=== PATIENT | female | born 1985 | race Caucasian/White ===

== ENCOUNTER 2017-10-06 17:40 | Inpatient (IN) | payer MEDICAID, OTHER ==
[~2017-10-06] VITALS: Ht 162.6 cm; Wt 75.0 kg
[~2017-10-06 17:40] MED LIST: ADDE30TA PO; CYMB30CA PO; CYMB60CA PO; PRAZ2CAP PO
[2017-10-06 17:52] VITALS: BP 152/97; PULSE 93; RESP 18; TEMP 98.9; O2SAT 99
--- NOTE | 2017-10-06 20:21 | PD ---
Physical Exam Date Seen by Provider: Oct 06, 2017 Time Seen by Provider: 20:16 Narrative 32 year old female presents to the emergency department for evaluation of infection in her hand. She went to Urgent Care who recommend she go to the ED. She went to [facility] who told her she needed a hand surgeon. She was tole that we had one construction project coordinator so she came here. Current pain is 8/10 without radiation. Data Data Last Documented VS Vital Signs Date Time Temp Pulse Resp B/P (MAP) Pulse Ox O2 Delivery O2 Flow Rate FiO2 10/06/17 17:52 98.9 93 18 152/97 (115) 99 Orders Orders Complete Blood Count With Diff (10/06/17 17:54) Prothrombin Time / Inr (Pt) (10/06/17 17:54) Act Partial Throm Time (Ptt) (10/06/17 17:54) Basic Metabolic Panel (Bmp) (10/06/17 17:54) Labs Laboratory Tests Test 10/06/17 19:30 White Blood Count 9.0 TH/MM3 Red Blood Count 5.17 MIL/MM3 Hemoglobin 13.9 GM/DL Hematocrit 41.7 % Mean Corpuscular Volume 80.8 FL Mean Corpuscular Hemoglobin 27.0 PG Mean Corpuscular Hemoglobin Concent 33.4 % Red Cell Distribution Width 15.2 % Platelet Count 248 TH/MM3 Mean Platelet Volume 9.1 FL Neutrophils (%) (Auto) 48.8 % Lymphocytes (%) (Auto) 37.5 % Monocytes (%) (Auto) 11.1 % Eosinophils (%) (Auto) 1.9 % Basophils (%) (Auto) 0.7 % Neutrophils # (Auto) 4.4 TH/MM3 Lymphocytes # (Auto) 3.4 TH/MM3 Monocytes # (Auto) 1.0 TH/MM3 Eosinophils # (Auto) 0.2 TH/MM3 Basophils # (Auto) 0.1 TH/MM3 CBC Comment DIFF FINAL Differential Comment Blood Urea Nitrogen 9 MG/DL Creatinine 0.72 MG/DL Random Glucose 88 MG/DL Calcium Level 8.8 MG/DL Sodium Level 140 MEQ/L Potassium Level 3.9 MEQ/L Chloride Level 105 MEQ/L Carbon Dioxide Level 27.9 MEQ/L Anion Gap 7 MEQ/L Estimat Glomerular Filtration Rate 94 ML/MIN [facility] Supervised Visit with ROSALIO: No Narrative Course 32 year old female presents to the emergency department for infection in her hand and was told she needed to see a hand surgeon. Work up was initiated in triage. Patient left AMA before she could be placed in a medical bed. Diagnosis Primary Impression: Left against medical advice Disposition: 07 AGAINST MEDICAL ADVICE Samra Mcmahon Oct 06, 2017 20:21
[2017-10-06 20:31] LABS: AUTOMATED NEUTROPHIL # 4.4 TH/MM3 (1.8-7.7); BASOPHIL # 0.1 TH/MM3 (0-0.2); BASOPHIL % 0.7 % (0.0-2.0); EOSINOPHIL # 0.2 TH/MM3 (0-0.4); EOSINOPHIL % 1.9 % (0.0-4.0); HEMATOCRIT 41.7 % (35.0-46.0); HEMOGLOBIN 13.9 GM/DL (11.6-15.3); LYMPH % 37.5 % (9.0-44.0); LYMPHOCYTE # 3.4 TH/MM3 (1.0-4.8); MEAN CELL VOLUME 80.8 FL (80.0-100.0); MEAN CORPUSCULAR HGB CONC 33.4 % (32.0-36.0); MEAN PLATELET VOLUME 9.1 FL (7.0-11.0); MONO % 11.1 % (0.0-8.0); NEUT % 48.8 % (16.0-70.0); PLATELET COUNT 248 TH/MM3 (150-450); RED BLOOD COUNT 5.17 MIL/MM3 (4.00-5.30); RED CELL DISTRIBUTION WIDTH 15.2 % (11.6-17.2)
[2017-10-06 20:44] LABS: BICARBONATE 27.9 MEQ/L (21.0-32.0); CALCIUM 8.8 MG/DL (8.5-10.1); CREATININE 0.72 MG/DL (0.50-1.00)
[2017-10-06 20:53] LABS: INTERNATIONAL NORMALIZED RATIO 0.9 RATIO; PROTHROMBIN TIME - PATIENT 9.1 SEC (9.8-11.6)
[2017-10-06] MEDS ORDERED: CLINDAMYCIN 600 MG/NS PREMIX 50 ML IV ONE (22:45)
[2017-10-06] MEDS ORDERED: CLINDAMYCIN 600 MG/NS 100 ML IV ONE ×2 (23:00)
--- NOTE | 2017-10-06 23:52 | PD ---
HPI Chief Complaint: Skin Problem Time Seen by Provider: 22:18 Travel History International Travel<30 days: No Contact w/Intl Traveler<30days: No Traveled to known affect area: No History of Present Illness HPI 32-year-old female came to the emergency room with history of right hand swelling for past 2 days. She thinks that it is from a cat scratch. Patient is right-handed. She started noticing the swelling mostly appearing on the dorsum of her hand initially. She applied some lidocaine on it to minimize the pain. After that she started soaking it in warm water. This morning when she woke up it was significantly swollen and she went to an urgent care. At urgent care she was given antibiotic and asked to go to an emergency room to be seen and probably get IV antibiotics. Patient went to [facility] where a CAT scan of the hand was done. She was told that there was abscess around her tendon. She was asked to be admitted to see a hand surgeon. Patient was told that there was no hand surgeon in the hospital and she may have to stay for about 3 days to be seen by one who comes from [place]. Patient did not want to stay that long since she has 2 children who she takes care of solely. Hence she came to this emergency room because she was told there is a hand surgeon in [place] 27/01 available. Vital signs are stable. 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 No history of fever or chills. [facility] Past Medical History Narrative Medical List of her past medical, surgical, social and family history reviewed from the nursing note. Musculoskeletal: Yes (CHRONIC LOW BACK PAIN) Immunizations Current: Yes Thyroid Disease: Yes (STATES LOW THYROID) ?: Not LMP: end of jul Past Surgical History Tonsillectomy: Yes Other Surgery: Yes (BREAST AUGMENTATION) Social History Alcohol Use: No Tobacco Use: Yes (1-2 CIGS DAILY) Substance Use: No Allergies-Medications (Allergen,Severity, Reaction): Coded Allergies: penicillin G (Unverified Allergy, Unknown, Hives, 10/06/17) Comments List of her allergies reviewed from the nursing note. Reported Meds & Prescriptions Reported Meds & Active Scripts Active Cymbalta DR (Duloxetine HCl) 30 Mg Capdr 30 Mg PO DAILY Adderall (Amphetamine-Dextroamphetamine) 30 Mg Tab 30 Mg PO BID Avoid late evening doses. Space doses at least 4 to 6 hours if more than once/day dosing. Reported Gabapentin 300 Mg Cap 300 Mg PO TID Xanax (Alprazolam) 1 Mg Tab 1 Mg PO BID PRN Oxycodone ER (Oxycodone HCl) 30 Mg Tab 30 Mg PO Q6HR Methadone (Methadone HCl) 10 Mg Tab 10 Mg PO TID Narrative Medication List of her home medications reviewed from the nursing note. Review of Systems Except as stated in HPI: all other systems reviewed are Neg Musculoskeletal: Positive: Pain Physical Exam Narrative GENERAL: Awake, alert, moderate distress SKIN: Focused skin assessment warm/dry. Right hand significantly swollen dorsum more than the palmar aspect. The fingers are semi-flexed. Patient is very tender to touch in the hand area and unable to extend her fingers. HEAD: Atraumatic. Normocephalic. EYES: Pupils equal and round. No scleral icterus. No injection or drainage. ENT: No nasal bleeding or discharge. Mucous membranes pink and moist. NECK: Trachea midline. No JVD. CARDIOVASCULAR: Regular rate and rhythm. No murmur appreciated. RESPIRATORY: No accessory muscle use. Clear to auscultation. Breath sounds equal bilaterally. GASTROINTESTINAL: Abdomen soft, non-tender, nondistended. Hepatic and splenic margins not palpable. MUSCULOSKELETAL: No obvious deformities. No clubbing. No cyanosis. No edema. NEUROLOGICAL: Awake and alert. No obvious cranial nerve deficits. Motor grossly within normal limits. Normal speech. PSYCHIATRIC: Appropriate mood and affect; insight and judgment normal. Data Data Last Documented VS Vital Signs Date Time Temp Pulse Resp B/P (MAP) Pulse Ox O2 Delivery O2 Flow Rate FiO2 10/06/17 17:52 98.9 93 18 152/97 (115) 99 Orders Orders Complete Blood Count With Diff (10/06/17 17:54) Prothrombin Time / Inr (Pt) (10/06/17 17:54) Act Partial Throm Time (Ptt) (10/06/17 17:54) Basic Metabolic Panel (Bmp) (10/06/17 17:54) Drug Screen, Random Urine (10/06/17 22:56) C-Reactive Protein (Crp) (10/06/17 22:56) Clindamycin Inj (Cleocin Inj) (10/06/17 23:00) Vancomycin Inj (Vancomycin Inj) (10/07/17 00:30) Blood Culture (10/07/17 00:27) Admit Order (Ed Use Only) (10/07/17 00:34) Labs Laboratory Tests Test 10/06/17 06:53 10/06/17 19:30 Urine Opiates Screen POS Urine Barbiturates Screen NEG Urine Amphetamines Screen NEG Urine Benzodiazepines Screen NEG Urine Cocaine Screen NEG Urine Cannabinoids Screen NEG White Blood Count 9.0 TH/MM3 Red Blood Count 5.17 MIL/MM3 Hemoglobin 13.9 GM/DL Hematocrit 41.7 % Mean Corpuscular Volume 80.8 FL Mean Corpuscular Hemoglobin 27.0 PG Mean Corpuscular Hemoglobin Concent 33.4 % Red Cell Distribution Width 15.2 % Platelet Count 248 TH/MM3 Mean Platelet Volume 9.1 FL Neutrophils (%) (Auto) 48.8 % Lymphocytes (%) (Auto) 37.5 % Monocytes (%) (Auto) 11.1 % Eosinophils (%) (Auto) 1.9 % Basophils (%) (Auto) 0.7 % Neutrophils # (Auto) 4.4 TH/MM3 Lymphocytes # (Auto) 3.4 TH/MM3 Monocytes # (Auto) 1.0 TH/MM3 Eosinophils # (Auto) 0.2 TH/MM3 Basophils # (Auto) 0.1 TH/MM3 CBC Comment DIFF FINAL Differential Comment Prothrombin Time 9.1 SEC Prothromb Time International Ratio 0.9 RATIO Activated Partial Thromboplast Time 27.3 SEC Blood Urea Nitrogen 9 MG/DL Creatinine 0.72 MG/DL Random Glucose 88 MG/DL Calcium Level 8.8 MG/DL Sodium Level 140 MEQ/L Potassium Level 3.9 MEQ/L Chloride Level 105 MEQ/L Carbon Dioxide Level 27.9 MEQ/L Anion Gap 7 MEQ/L Estimat Glomerular Filtration Rate 94 ML/MIN C-Reactive Protein 2.78 MG/DL MDM Medical Decision Making Medical Screen Exam Complete: Yes Emergency Medical Condition: Yes Medical Record Reviewed: Yes Differential Diagnosis Deep palmar infection, deep palmar abscess, tendinitis Narrative Course 11:57 PM blood test results are back. CRP is elevated. Rest of the blood test results appear to be within acceptable limits. Currently waiting for the CAT scan report to be faxed over from [facility]. Patient has been ordered for IV antibiotic. I explained to the patient that she will have to be admitted in this institution as well to be seen by hand surgeon tomorrow morning. Patient is very concerned about that situation since she has nobody to take care of her children. Currently she is trying to make phone calls to see if somebody could take care of the children so that she can get admitted. She does not want to get an IV access and IV antibiotic till that has happened. 12:19 AM the CAT scan report came back from [facility] which shows extensive tenosynovitis of the hand with a lot of inflammation on the dorsum of the hand. No abscess collect was seen. I discussed this CAT scan finding with Dr. Lino was transportation planner for hand. He agreed with admission and IV antibiotic. He wanted the hand to be elevated on IV pole to minimize the swelling. Awaiting for the hospitalist to call back for admission. Patient has been informed about all this. She has agreed to stay tonight and see what the hand surgeon has to say in the morning. I have explained to her on multiple occasions that if she decides to leave, it will be against medical advice and make her condition far worse. Procedures EKG Prior to Arrival: No Physician Communication Physician Communication Dr. Mott Diagnosis Primary Impression: Cellulitis of hand Additional Impression: Extensor tenosynovitis of right wrist Admitting Information Admitting Physician Requests: Admit Condition: Stable Carmen Larsen MD Oct 06, 2017 23:52
[2017-10-07] MEDS ORDERED: VANCOMYCIN INJ 1,000 MG in SODIUM CHLOR 0.9% 250 ML INJ 250 ML IV ONE (00:30)
[2017-10-07] MEDS ORDERED: SODIUM CHLOR 0.9% 1000 ML INJ 1,000 ML IV SCH (01:32)
[2017-10-07] MEDS ORDERED: SENNOSIDES 8.6 MG TAB PO PRN (01:45)
[2017-10-07] MEDS ORDERED: BISACODYL 10 MG SUPP RECTAL PRN (01:45)
[2017-10-07] MEDS ORDERED: ACETAMINOPHEN 325 MG TAB PO PRN (01:45)
[2017-10-07] MEDS ORDERED: MORPHINE SULFATE 2 MG/ML SYRINGE IV PUSH PRN (01:45)
[2017-10-07] MEDS ORDERED: Vancomycin Consult Pharmacy 1 EA OTHER SCH (01:45)
[2017-10-07] MEDS ORDERED: LACTULOSE SYRUP 20 GM/30 ML CUP PO PRN (01:45)
[2017-10-07] MEDS ORDERED: MAGNESIUM HYDROXIDE SUSP 30 ML CUP PO PRN (01:45)
[2017-10-07] MEDS ORDERED: NALOXONE HCL 0.4 MG/ML AMP IV PUSH PRN (01:45)
[2017-10-07] MEDS ORDERED: ONDANSETRON HCL 4 MG/2 ML VIAL IVP PRN (01:45)
[2017-10-07] MEDS ORDERED: SODIUM CHLORIDE 0.9% FLUSH 10 ML FLUSH IV FLUSH PRN (01:45)
[2017-10-07 02:38] VITALS: BP 129/70; PULSE 69; RESP 16; O2SAT 98
[2017-10-07 05:42] VITALS: BP 142/71; PULSE 77; RESP 18; O2SAT 98
[2017-10-07] MEDS ORDERED: PIPERACIL-TAZO 3.375 GM PREMIX 50 ML IV SCH (06:00)
[2017-10-07] MEDS ORDERED: OXYC-426 PO (06:02)
[2017-10-07] MEDS ORDERED: GABA300C5 PO (06:02)
[2017-10-07] MEDS ORDERED: METH10TA PO (06:02)
[2017-10-07] MEDS ORDERED: XANA1TAB2 PO (06:02)
--- NOTE | 2017-10-07 07:57 | HHI.HP ---
HPI Service [facility] Hospitalists Primary Care Physician No Primary Care Physician Admission Diagnosis Hand cellulitis, extensive Tenosynovitis Diagnoses: (1) Cellulitis of hand Diagnosis: Principal Chief Complaint: swelling of the right hand Travel History International Travel<30 Days: No Contact w/Intl Traveler <30 Da: No Traveled to Known Affected Are: No History of Present Illness patient is a 32 y/o female who presented to ER with swelling of the right hand she says that two days ago when she was walking her dog she fell on her right hand. she started to have some swelling of the right hand. she tried some heat compress which helped to some extent but the swelling and pain started to get worse yesterday which made her to go to [facility]. she says that she's not sure if it was because of the fall or cat scratch.she was evaluated there but because there was no hand surgery she decided to come to [facility]. she denies any fever or chills at home. pain was moderate in intensity at the time of my evaluation. Review of Systems Constitutional: DENIES: Fever, Weight loss, Chills, Night Sweats Eyes: DENIES: Blurred vision, Diplopia, Vision loss, Double Vision Ears, nose, mouth, throat: DENIES: Tinnitus, Vertigo, Throat pain, Epistaxis Respiratory: DENIES: Apneas, Cough, Snoring, Wheezing, Hemoptysis, Sputum production, Shortness of breath Cardiovascular: DENIES: Chest pain, Palpitations, Syncope, Dyspnea on Exertion , PND, Lower Extremity Edema, Orthopnea, Claudication Gastrointestinal: DENIES: Abdominal pain, Black stools, Bloody stools, Constipation, Diarrhea, Nausea, Vomiting, Difficulty Swallowing, Anorexia Genitourinary: DENIES: Urinary frequency, Urgency, Hematuria, Dysuria Musculoskeletal: COMPLAINS OF: Joint pain (right hand.), DENIES: Muscle aches, Stiffness, Joint Swelling Integumentary: DENIES: Rash Neurologic: DENIES: Abnormal gait, Headache, Localized weakness, Paresthesias, Seizures, Speech Problems, Tremor, Poor Balance Psychiatric: DENIES: Anxiety, Confusion, Mood changes, Depression, Hallucinations, Agitation, Suicidal Ideation, Homicidal Ideation, Delusions Past Family Social History Past Medical History chronic back pain. Past Surgical History tonsillectomy Reported Medications methadone Allergies: Coded Allergies: penicillin G (Unverified Allergy, Unknown, Hives, 10/06/17) Active Ordered Medications Inpatient Medications Acetaminophen (Tylenol) 650 mg Q4H PRN PO TEMP > 100.4; Start 10/07/17 at 01:45 Bisacodyl (Dulcolax Supp) 10 mg DAILY PRN RECTAL SEVERE CONSITIPATION / IF NPO ; Start 10/07/17 at 01:45 Clindamycin Phosphate 600 mg/ Sodium Chloride 104 ml @ 208 mls/hr ONCE ONCE IV Last administered on 10/06/17at 23:30; Start 10/06/17 at 23:00; Stop 10/06/17 at 23:29; Status DC Lactulose (Lactulose Liq) 30 ml DAILY PRN PO SEVERE CONSITIPATION/ IF PO; Start 10/07/17 at 01:45 Magnesium Hydroxide (Milk Of Magnesia Liq) 30 ml Q12H PRN PO Mild constipation ; Start 10/07/17 at 01:45 Miscellaneous Information SPECIFIC LAB TO BE JOANNE... ONCE ONCE .XX ; Start at 13:45; Stop 10/09/17 at 13:46 Morphine Sulfate (Morphine Inj) 2 mg Q4H PRN IV PUSH pain 6-10 Last administered on 10/07/17at 02:42; Start 10/07/17 at 01:45 Naloxone HCl (Narcan Inj) 0.4 mg UNSCH PRN IV PUSH SEE LABEL COMMENTS; Start at 01:45 Ondansetron HCl (Zofran Inj) 4 mg Q6H PRN IVP NAUSEA OR VOMITING; Start at 01:45 Pharmacy Profile Note 0 ml @ 0 mls/hr UNSCH OTHER ; Start 10/07/17 at 01:45 Piperacillin Sod/ Tazobactam Sod 50 ml @ 100 mls/hr Q6H IV Last administered on 10/07/17at 06:06; Start 10/07/17 at 06:00 Senna/Docusate Sodium (Candy-Colace) 1 tab BID PO ; Start 10/07/17 at 09:00 Sennosides (Senokot) 17.2 mg Q12H PRN PO Moderate constipation; Start 10/07/17 at 01:45 Sodium Chloride (NS Flush) 2 ml BID IV FLUSH ; Start 10/07/17 at 09:00 Vancomycin HCl 1000 mg/Sodium Chloride 250 ml @ 250 mls/hr ONCE ONCE IV Last administered on 10/07/17at 01:25; Start 10/07/17 at 00:30; Stop 10/07/17 at 01:29; Status DC Vancomycin HCl 1250 mg/Sodium Chloride 250 ml @ 250 mls/hr Q12H IV ; Start 10/07 at 14:00 Family History not relevant to this admission. Social History smokes a pack a day. prior history of IV drug abuse. Physical Exam Vital Signs Vital Signs Date Time Temp Pulse Resp B/P (MAP) Pulse Ox O2 Delivery O2 Flow Rate FiO2 10/07/17 05:42 77 18 142/71 (94) 98 Room Air 10/07/17 02:38 69 16 129/70 (89) 98 Room Air 10/06/17 17:52 98.9 93 18 152/97 (115) 99 Physical Exam GENERAL: This is a well-nourished, well-developed patient, in no apparent distress. SKIN: No rashes, ecchymoses or lesions. Cool and dry. HEAD: Atraumatic. Normocephalic. No temporal or scalp tenderness. EYES: Pupils equal round and reactive. Extraocular motions intact. No scleral icterus. No injection or drainage. ENT: Nose without bleeding, purulent drainage or septal hematoma. Throat without erythema, tonsillar hypertrophy or exudate. Uvula midline. Airway patent. NECK: Trachea midline. No JVD or lymphadenopathy. Supple, nontender, no meningeal signs. CARDIOVASCULAR: Regular rate and rhythm without murmurs, gallops, or rubs. RESPIRATORY: Clear to auscultation. Breath sounds equal bilaterally. No wheezes , rales, or rhonchi. GASTROINTESTINAL: Abdomen soft, non-tender, nondistended. No hepato-splenomegaly , or palpable masses. No guarding. MUSCULOSKELETAL: right hand is swollen and tender to touch. NEUROLOGICAL: Awake and alert. Cranial nerves II through XII intact. Motor and sensory grossly within normal limits. Five out of 5 muscle strength in all muscle groups. Normal speech. Laboratory Laboratory Tests Test 4/2/18 19:30 White Blood Count 9.0 Red Blood Count 5.17 Hemoglobin 13.9 Hematocrit 41.7 Mean Corpuscular Volume 80.8 Mean Corpuscular Hemoglobin 27.0 Mean Corpuscular Hemoglobin Concent 33.4 Red Cell Distribution Width 15.2 Platelet Count 248 Mean Platelet Volume 9.1 Neutrophils (%) (Auto) 48.8 Lymphocytes (%) (Auto) 37.5 Monocytes (%) (Auto) 11.1 Eosinophils (%) (Auto) 1.9 Basophils (%) (Auto) 0.7 Neutrophils # (Auto) 4.4 Lymphocytes # (Auto) 3.4 Monocytes # (Auto) 1.0 Eosinophils # (Auto) 0.2 Basophils # (Auto) 0.1 CBC Comment DIFF FINAL Differential Comment Prothrombin Time 9.1 Prothromb Time International Ratio 0.9 Activated Partial Thromboplast Time 27.3 Blood Urea Nitrogen 9 Creatinine 0.72 Random Glucose 88 Calcium Level 8.8 Sodium Level 140 Potassium Level 3.9 Chloride Level 105 Carbon Dioxide Level 27.9 Anion Gap 7 Estimat Glomerular Filtration Rate 94 C-Reactive Protein 2.78 Date/Time Source Procedure Growth Status 10/07/17 01:10 Blood Peripheral Aerobic Blood Culture Pending Received 10/07/17 01:10 Blood Peripheral Anaerobic Blood Culture Pending Received Result Diagram: 10/06/17192910/06/171929 Caprini VTE Risk Assessment Caprini VTE Risk Assessment: No/Low Risk (score <= 1) Caprini Risk Assessment Model Point Value = 1 Point Value = 2 Point Value = 3 Point Value = 5 Age 41-60 Minor surgery BMI > 25 kg/m2 Swollen legs Varicose veins or History of unexplained or recurrent spontaneous Oral contraceptives or hormone replacement Sepsis (< 1 month) Serious lung disease, including pneumonia (< 1 month) Abnormal pulmonary function Acute myocardial infarction Congestive heart failure (< 1 month) History of inflammatory bowel disease Medical patient at bed rest Age 61-74 Arthroscopic surgery Major open surgery (> 45 min) Laparoscopic surgery (> 45 min) Malignancy Confined to bed (> 72 hours) Immobilizing plaster cast Central venous access Age >= 75 History of VTE Family history of VTE Factor V Leiden Prothrombin [id number] Lupus anticoagulant Anticardiolipin antibodies Elevated serum homocysteine Heparin-induced thrombocytopenia Other congenital or acquired thrombophilia Stroke (< 1 month) Elective arthroplasty Hip, pelvis, or leg fracture Acute spinal cord injury (< 1 month) Prophylaxis Regimen Total Risk Factor Score Risk Level Prophylaxis Regimen 0-1 Low Early ambulation 2 Moderate Order ONE of the following: *Sequential Compression Device (SCD) *Heparin 5000 units SQ BID 3-4 Higher Order ONE of the following medications: *Heparin 5000 units SQ TID *Enoxaparin/Lovenox 40 mg SQ daily (WT < 150 kg, CrCl > 30 mL/min) *Enoxaparin/Lovenox 30 mg SQ daily (WT < 150 kg, CrCl > 10-29 mL/min) *Enoxaparin/Lovenox 30 mg SQ BID (WT < 150 kg, CrCl > 30 mL/min) AND/OR *Sequential Compression Device (SCD) 5 or more Highest Order ONE of the following medications: *Heparin 5000 units SQ TID (Preferred with Epidurals) *Enoxaparin/Lovenox 40 mg SQ daily (WT < 150 kg, CrCl > 30 mL/min) *Enoxaparin/Lovenox 30 mg SQ daily (WT < 150 kg, CrCl > 10-29 mL/min) *Enoxaparin/Lovenox 30 mg SQ BID (WT < 150 kg, CrCl > 30 mL/min) AND *Sequential Compression Device (SCD) Assessment and Plan Assessment and Plan A/P - right hand infectious tenosynovitis CT of the hand from [facility] reviewed. continue with broad spectrum IV antibiotics - hand surgery consulted- continue with pain control. -chronic back pain will verify the methadone dose- resume the rest of home pain regimen Discussed Condition With the patient and RN. Physician Certification 2 Midnight Certification Type: Admission for Inpatient Services Order for Inpatient Services The services are ordered in accordance with Medicare regulations or non- Medicare payer requirements, as applicable. In the case of services not specified as inpatient-only, they are appropriately provided as inpatient services in accordance with the 2-midnight benchmark. Estimated LOS (days): 2 days is the estimated time the patient will need to remain in the hospital, assuming treatment plan goals are met and no additional complications. Post-Hospital Plan: Home Lilian Reese MD Oct 07, 2017 07:57
[2017-10-07] MEDS ORDERED: DOCUSATE SODIUM 50 MG/SENNA 8.6 MG TAB PO SCH (09:00)
[2017-10-07] MEDS ORDERED: SODIUM CHLORIDE 0.9% FLUSH 10 ML FLUSH IV FLUSH SCH (09:00)
[2017-10-07] MEDS ORDERED: VANCOMYCIN INJ 1,250 MG in SODIUM CHLOR 0.9% 250 ML INJ 250 ML IV SCH (14:00)
--- NOTE | 2017-10-07 14:28 | MB ---
cc: Steven Mott MD DATE: 10/07/2017 DATE OF CONSULTATION: 10/07/2017 HISTORY OF PRESENT ILLNESS: The patient is a 32-year-old, right-hand dominant female. I think she may have been scratched by her cat which she said got worse 2 days ago. She went to Urgent Care and she said they sent her to [facility]. They said that she needed to wait for a few days and then go see a hand surgeon in [place] or [place]. Apparently she signed out against medical advice and then she came to [place] because somebody told her that there are hand surgeons there 27/01. She had a report of the CAT scan. PAST MEDICAL HISTORY: Chronic back pain. PAST SURGICAL HISTORY: Tonsillectomy. MEDICATIONS: Methadone. ALLERGIES: PENICILLIN G. INPATIENT MEDICATIONS: Listed in the computer. X-RAYS: No x-rays were done. Report from CAT scan that was done at [facility], reveals extensive tenosynovitis of the hand with a lot of inflammation on the dorsum of the hand. LABORATORY STUDIES: Reveal white blood cell count of 9000, hemoglobin 13.9 g/dL, platelet count 248,000. BUN and creatinine of 9 and 0.72. REVIEW OF SYSTEMS: Negative, unless otherwise as stated in the HPI. She is not complaining of any headaches or blurry or double vision. She is not complaining of any cough, wheeze or shortness of breath, not complaining of any nausea, vomiting or abdominal pain. She is not complaining of any chest pain or palpitations. She is not complaining of any burning, frequency or urgency with urination. She does not complain of any spine, neck or back pain. She is not complaining of any anxiety, depression, or suicidal ideations. She is not complaining of any night sweats, fevers or chills. PHYSICAL EXAMINATION: GENERAL: Well-developed, well-nourished, in no apparent distress. VITAL SIGNS: Temperature 98.9, heart rate 77, respiratory rate 18, blood pressure 142/71. UPPER EXTREMITIES: She has her right arm resting on her chest and not in the sling or elevated. GENERAL: She is awake, alert and oriented x3. She is pleasant. HEENT: Normocephalic, atraumatic. Pupils equal and round. LUNGS: Her respiratory effort is normal. SKIN: Normal in its appearance and temperature on her right arm. Her right arm is slightly edematous still in the dorsal aspect of the hand and wrist. There is no erythema. There is no obvious cellulitis. There is no induration. There is no fluctuance. There is no evidence of any abscess. All musculotendinous units are intact. She is tender to palpation and manipulation, but there is no tenderness to passive range of motion. There is no subcutaneous emphysema or any crepitance. Capillary refill is less than 2 seconds in all fingertips. There is no streaking proximally and there is no epitrochlear adenopathy. IMPRESSION: Tenosynovitis extensor tendons right hand and wrist. RECOMMENDATIONS: There is nothing warranting surgical intervention at this time. My recommendations are for IV post sling elevation maritime guard, IV antibiotics, range of motion exercises, and I will order an x-ray, but I would recommend observation with strong IV antibiotics at this time. I discussed this with the patient and she was having issues with the whole plan because she has children at home and it sounds like she has a lot going on so we will take this day by day. I discussed how, if she leaves without getting treated, it would get worse. MD AZAEL Painting/JEROME , 01:34 PM , 02:26 PM
[2017-10-08] MEDS ORDERED: PHARMACY ORDERED LAB ONE (13:45)
== END 2017-10-07 10:53 | disposition left against medical advice (07) | DRG 558 ==
LOC: NED 17:40 → NEDA 10-07 00:36 → NEDH 10-07 05:02
PROVIDERS: ADMIT Internal Medicine; ATTEND Internal Medicine
DX: M65.141 Other infective (teno)synovitis, right hand (principal); L03.113 Cellulitis of right upper limb; M65.131 Other infective (teno)synovitis, right wrist; F17.210 Nicotine dependence, cigarettes, uncomplicated; G89.29 Other chronic pain; M54.5 Low back pain; F11.99 Opioid use, unspecified with unspecified opioid-induced disorder; Z88.0 Allergy status to penicillin; W55.03XA Scratched by cat, initial encounter; W18.30XA Fall on same level, unspecified, initial encounter
CPT/HCPCS: 80048; 80307; 85025; 85610; 85730; 86140; 87040; 96365; J2270; J2543; J3370; J7030; J7050